=== PATIENT | male | born 1985 | race African-American/Black ===

== ENCOUNTER 2018-05-03 12:01 | Inpatient (IN) | payer OTHER ==
[2018-05-03 17:32] VITALS: BMI 27.7
--- NOTE | 2018-05-03 18:58 | HP ---
"COWS - Scale Resting Pulse: 0= [place] 80 or Below Sweatin=Flushed/Facial Moisture Restless Observation: 3= Extraneous Movement Pupil Size: 0= Normal to Room Light Bone or Joint Aches: 2= Severe Diffuse Aches (Increase in pre-existing bone pain ) Runny Nose/ Eye Tearin= Runny Nose/Eyes GI Upset > 30mins: 0= None Tremor Observation: 2= Slight Tremor Visible Yawning Observation: 0= None Anxiety or Irritability: 1=Feels Anxious/Irritable Goose Flesh Skin: 0=Smooth Skin COWS Score: 12 CIWA Score - CIWA Score Nausea/Vomitin-Mild Nausea/No Vomiting Muscle Tremors: 4-Moderate,w/Arms Extend Anxiety: 1-Mildly Anxious Agitation: 4-Moderately Restless Paroxysmal Sweats: 4-Forehead w/Sweat Beads Orientation: 0-Oriented Tacttile Disturbances: 0-None Auditory Disturbances: 0-None Visual Disturbances: 0-None Headache: 0-None Present CIWA-Ar Total Score: 14 Admission ROS S - HPI Chief Complaint: Here for detox from alcohol and heroin. I'm having withdrawal. Allergies/Adverse Reactions: Allergies Allergy/AdvReac Type Severity Reaction Status Date / Time Penicillins Allergy Severe Verified 05/03/18 17:46 History of Present Illness: Alcohol use began at age 10. Marijuana use began at age 13. Heroin use began at age 32. Denies IVDU. States seizures only as a child. Denies blackouts. Hx DM. Last took insulin 3 days ago and metformin 2 days ago. Denies hx high blood pressure. Longest period of sobriety 6 months while on Suboxone. Not currently on Suboxone or methaone. Search Terms: Casey Meehan, 1985 Search Date: 05/03/2018 06:42:51 PM The Drug Utilization Report below displays all of the controlled substance prescriptions, if any, that your patient has filled in the last twelve months. The information displayed on this report is compiled from pharmacy submissions to the Department, and accurately reflects the information as submitted by the pharmacies. This report was requested by: Nilda Hassan | Reference #: [id number] Others' Prescriptions Patient Name: Casey Meehan Date: 1985 Address: [address] [place] [address] Sex: Male Rx Written Rx Dispensed Drug Quantity Days Supply Prescriber Name 01/16/2018 01/17/2018 suboxone 8 mg-2 mg sl film 45 23 Jluis Harp 12/19/2017 12/19/2017 suboxone 8 mg-2 mg sl film 45 23 Desmond Reina MD 09/24/2017 09/25/2017 suboxone 8 mg-2 mg sl film 45 23 Jluis Harp 08/17/2017 08/17/2017 suboxone 8 mg-2 mg sl film 45 25 Jluis Harp 07/31/2017 07/31/2017 suboxone 8 mg-2 mg sl film 30 15 Jluis Harp 07/17/2017 07/17/2017 suboxone 8 mg-2 mg sl film 30 30 Edmond Garcia MD 07/10/2017 07/10/2017 suboxone 8 mg-2 mg sl film 7 7 Jluis Harp Exam Limitations: No Limitations - Ebola screening Have you traveled outside of the country in the last 21 days: No Have you had contact with anyone from an Ebola affected area: No Have you been sick,other than usual withdrawal symptoms: No Do you have a fever: No - Review of Systems Constitutional: Diaphoresis, Changes in sleep (Difficulty falling asleep x 15 years) EENT: reports: Blurred Vision (Needs gl), Dental Problems (Missing teeth. Chews and swallow ok.) Respiratory: reports: No Symptoms reported Cardiac: reports: No Symptoms Reported GI: reports: Diarrhea (greenish x i day r/t withdrawal), Nausea, Indigestion ( Recent episodes of heart burn) : reports: No Symptoms Reported Musculoskeletal: reports: Back Pain (Tightness and sharp pain that radiates to ( L) groin x 4 monhts), Other (Bone pain in lower legs and elbows x 4 months.) Integumentary: reports: No Symptoms Reported Neuro: reports: Seizure (as a child.), Tremors Endocrine: reports: Increased Thirst, Increased Urine Hematology: reports: No Symptoms Reported Psychiatric: reports: Judgement Intact, Orientated x3, Agitated, Anxious, Depressed (Hx. PTSD.Denies trhoughts of harming selfor others) Patient History - Patient Medical History Hx Asthma: No Hx Chronic Obstructive Pulmonary Disease (COPD): No Hx Cardiac Disorders: No Hx Hypertension: No Hx Seizures: Yes (chiildhood seizures last 20 yrs ago.) Hx Diabetes: Yes (Type II) Hx Gastrointestinal Disorders: Yes (acid reflux.) Hx Genitourinary Disorders: No Hx Sexually Transmitted Disorders: No Hx Renal Disease (ESRD): No Hx Depression: No Hx Suicide Attempt: No Hx Schizophrenia: No - Patient Surgical History Past Surgical History: Yes Hx Orthopedic Surgery: Yes (R shoulder ligament repair 03/06) Anesthesia Reaction: No - PPD History Previous Implant?: Yes Documented Results: Positive w/o proof (X-ray 60 days ago at X-ray facility on [address] Implanted On Prior [facility] Admission?: No PPD to be Administered?: No - Smoking Cessation Smoking history: Current every day smoker Have you smoked in the past 12 months: Yes Aproximately how many cigarettes per day: 10 Hx Chewing Tobacco Use: No Initiated information on smoking cessation: Yes 'Breaking Loose' booklet given: 05/03/18 - Substance & Tx. History Hx Alcohol Use: Yes Hx Substance Use: Yes Substance Use Type: Alcohol, Heroin, Marijuana Hx Substance Use Treatment: Yes (states past subxone treatment only) - Substances Abused Heroin Route: Inhalation Frequency: Daily Amount used: 6 bags Age of first use: 32 Date of Last Use: 05/02/18 Alcohol Route: Oral Frequency: Daily Amount used: 1 pint and up Age of first use: 10 Date of Last Use: 05/03/18 Marijuana/Hashish Route: Smoking Frequency: Daily Amount used: 1/2 ounce Age of first use: 13 Date of Last Use: 05/03/18 Admission Physical Exam S - Vital Signs Vital Signs: Vital Signs - 24 hr 05/03/18 17:30 Temperature 97.4 F L Pulse Rate 70 Respiratory 21 Rate Blood Pressure 148/90 - Physical General Appearance: Yes: Nourished, Appropriately Dressed, Mild Distress, Tremorous, Sweating, Anxious HEENTM: Yes: EOMI, Hearing grossly Normal, Normal Voice, PANCHITO (4 mm), Pharynx Normal, Rhinorrhea Respiratory: Yes: Chest Non-Tender, Lungs Clear, No Respiratory Distress Neck: Yes: No masses,lesions,Nodules, Supple Breast: Yes: Breast Exam Deferred Cardiology: Yes: Regular Rhythm, Regular Rate, S1, S2 Abdominal: Yes: Non Tender, Flat, Soft, Increased Bowel Sounds Genitourinary: Yes: Within Normal Limits Back: Yes: Normal Inspection Musculoskeletal: Yes: Gait Steady, Joint Stiffness (Decreased lift (R) shoulder. Decreased (R) hand grasp compared to (L). Radial pusles (+).) Extremities: Yes: Normal Capillary Refill, Normal Inspection, Tremors Neurological: Yes: teenage program director II-XII NML intact, Fully Oriented, Alert, Motor Strength 5/5 Integumentary: Yes: Normal Color, Dry, Warm Lymphatic: Yes: Within Normal Limits - Diagnostic (1) Alcohol dependence with uncomplicated withdrawal Current Visit: Yes Status: Acute (2) Opioid dependence with withdrawal Current Visit: Yes Status: Acute (3) Cannabis dependence, uncomplicated Current Visit: Yes Status: Acute (4) Nicotine dependence with withdrawal Current Visit: Yes Status: Acute Qualifiers: Nicotine product type: cigarettes Qualified Code(s): F17.213 - Nicotine dependence, cigarettes, with withdrawal (5) Diabetes Current Visit: Yes Status: Chronic Qualifiers: Diabetes mellitus type: type 2 Diabetes mellitus exterminator termite insulin use: with halfway use Diabetes mellitus complication status: with unspecified complications Qualified Code(s): E11.8 - Type 2 diabetes mellitus with unspecified complications; Z79.4 - lobsterman (current) use of insulin Cleared for Admission [facility] - Detox or Rehab Detox Regimen/Protocol: Methadone/Librium [facility] Breath Alcohol Content Breath Alcohol Content: 0 Urine Drug Screen - Results Drug Screen Negative: No Urine Drug Screen Results: THC-Marijuana, OPI-Opiates"
[2018-05-03] MEDS ORDERED: guaiFENesin/D-METHORPHAN HB 10 ML UNIT-DOSE CUPS PO PRN (19:31)
[2018-05-03] MEDS ORDERED: hydrOXYzine PAMOATE 50 MG CAPSULE (FP) PO PRN (19:31)
[2018-05-03] MEDS ORDERED: NICOTINE POLACRILEX 2 MG GUM BC PRN (19:31)
[2018-05-03] MEDS ORDERED: LOPERAMIDE HCL 2 MG CAPSULE PO PRN (19:31)
[2018-05-03] MEDS ORDERED: METHADONE HCL 10 MG TABLET (FOR DETOX USE ONLY) PO ONE ×2 (19:31→23:00)
[2018-05-03] MEDS ORDERED: chlordiazePOXIDE HCL 25 MG CAPSULE PO PRN (19:31)
[2018-05-03] MEDS ORDERED: ACETAMINOPHEN 325 MG TABLET (FP) PO PRN (19:31)
[2018-05-03] MEDS ORDERED: MAGNESIUM CITRATE 300 ML BOTTLE PO PRN (19:31)
[2018-05-03] MEDS ORDERED: IBUPROFEN 400 MG TABLET (FP) PO PRN (19:31)
[2018-05-03] MEDS ORDERED: MAG HYDROX/AL HYDROX/SIMETH 30 ML UNIT-DOSE CUP PO PRN (19:31)
[2018-05-03] MEDS ORDERED: MAGNESIUM HYDROX 2400MG/30ML ORAL SUSPENSION 30 ML CUP PO PRN (19:31)
[2018-05-03] MEDS ORDERED: chlordiazePOXIDE HCL 25 MG CAPSULE PO ONE (19:31)
[2018-05-03] MEDS ORDERED: P-EPHED 60MG/TRIPROLIDI 2.5MG TABLET PO PRN (19:31)
[2018-05-03] MEDS ORDERED: MENTHOL/PHENOL 1 EACH UD MM PRN (19:31)
[2018-05-03] MEDS: INSULIN SLIDING SCALE (NOVOLOG) 1 VIAL SQ SCH (21:09)
[2018-05-03] MEDS: THIAMINE HCL 100 MG TABLET (FP) PO SCH (22:07)
[2018-05-03] MEDS: chlordiazePOXIDE HCL 25 MG CAPSULE PO SCH (22:07)
[2018-05-03] MEDS: INSULIN (LEVEMIR) 100 UNITS/ML UNITS SQ SCH (22:10)
[2018-05-04] MEDS: chlordiazePOXIDE HCL 25 MG CAPSULE PO SCH ×4 (05:24→22:47)
[2018-05-04] MEDS: metFORMIN HCL 500 MG TABLET (FP) PO SCH ×2 (07:31→17:29)
[2018-05-04] MEDS: INSULIN SLIDING SCALE (NOVOLOG) 1 VIAL SQ SCH ×4 (07:31→21:45)
[2018-05-04] MEDS ORDERED: METHADONE HCL 10 MG TABLET (FOR DETOX USE ONLY) PO SCH (10:00)
[2018-05-04] MEDS: PRENATAL VITAMINS W/ FOLIC ACID TABLET (FP) PO SCH (10:49)
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
[2018-05-04] MEDS: NICOTINE 21 MG/24 HOURS TOPICAL PATCH TD SCH (10:50)
[2018-05-04 10:59] LABS: HEMOGLOBIN 13.3 GM/dL (11.7-16.9)
[2018-05-04 11:02] LABS: HEMATOCRIT 40.3 % (35.4-49); MCH 30.7 pg (25.7-33.7); MCHC 32.9 g/dl (32.0-35.9); MEAN CELL VOLUME 93.2 fl (80-96); MEAN PLT VOLUME 9.3 fl (7.5-11.1); PLATELET COUNT 231 K/MM3 (134-434); RBC 4.33 M/mm3 (4.00-5.60); RDW 12.2 % (11.9-15.9); WHITE BLOOD COUNT 8.7 K/mm3 (4.0-10.0)
[2018-05-04 11:34] LABS: ALBUMIN 3.2 g/dl (3.4-5.0); ANION GAP 10 MMOL/L (8-16); BILIRUBIN,TOTAL 0.4 mg/dL (0.2-1.0); BLOOD UREA NITROGEN 16 mg/dL (7-18); CALCIUM 8.5 mg/dL (8.5-10.1); CHLORIDE 105 mmol/L (98-107); CO2 27 mmol/L (21-32); CREATININE 0.9 mg/dL (0.55-1.3); GLUCOSE,RANDOM 247 mg/dL (74-106); POTASSIUM 4.1 mmol/L (3.5-5.1); SGOT/AST 11 U/L (15-37); SGPT/ALT 16 U/L (13-61); SODIUM 142 mmol/L (136-145); TOT PROT 6.2 g/dl (6.4-8.2)
[2018-05-04 11:35] LABS: ALK PHOS 108 U/L (45-117)
--- NOTE | 2018-05-04 14:06 | PN ---
[facility] Progress Note (SOAP) Subjective: patient reports fatigue , otherwise denies n.v.d. Objective: 05/04/18 14:05 CBC, BMP 05/04/18 07:50 05/04/18 07:50 Vital Signs Temperature 98.7 F 05/04/18 11:04 Pulse Rate 76 05/04/18 11:04 Respiratory Rate 18 05/04/18 11:04 Blood Pressure 134/87 05/04/18 11:04 O2 Sat by Pulse Oximetry (%) wnwd , aaox 3 , nad Assessment: 05/04/18 14:05 alcohol and opioid dependence dm- sliding scale in place Plan: continue taper
[2018-05-04] MEDS ORDERED: INSULIN (NOVOLOG) ASPART 100 UNITS/ML 10ML VIAL ONE (21:43)
[2018-05-04] MEDS: INSULIN (LEVEMIR) 100 UNITS/ML UNITS SQ SCH (21:46)
[2018-05-04] MEDS: THIAMINE HCL 100 MG TABLET (FP) PO SCH (22:47)
[2018-05-05] MEDS: chlordiazePOXIDE HCL 25 MG CAPSULE PO SCH ×3 (05:23→17:01)
[2018-05-05] MEDS: metFORMIN HCL 500 MG TABLET (FP) PO SCH ×2 (06:26→17:01)
[2018-05-05] MEDS: INSULIN SLIDING SCALE (NOVOLOG) 1 VIAL SQ SCH ×4 (06:27→22:32)
[2018-05-05] MEDS: NICOTINE 21 MG/24 HOURS TOPICAL PATCH TD SCH (10:47)
[2018-05-05] MEDS: PRENATAL VITAMINS W/ FOLIC ACID TABLET (FP) PO SCH (10:47)
[2018-05-05] MEDS: METHADONE HCL 5 MG TABLET (FOR DETOX USE ONLY) PO SCH (10:47)
[2018-05-05] MEDS ORDERED: INSULIN (NOVOLOG) ASPART 100 UNITS/ML 10ML VIAL ONE ×3 (11:56→22:51)
--- NOTE | 2018-05-05 15:03 | PN ---
[facility] CIWA - CIWA Score Nausea/Vomitin-Mild Nausea/No Vomiting Muscle Tremors: 3 Anxiety: 3 Agitation: 2 Paroxysmal Sweats: 3 Orientation: 0-Oriented Tacttile Disturbances: 1-Very Mild Itch/Numbness Auditory Disturbances: 0-None Visual Disturbances: 0-None Headache: 1-Very Mild CIWA-Ar Total Score: 14 [facility] COWS - Scale Resting Pulse: 0= [place] 80 or Below Sweatin= Chills/Flushing Restless Observation: 3= Extraneous Movement Pupil Size: 1= Pupils >than Normal Bone or Joint Aches: 2= Severe Diffuse Aches Runny Nose/ Eye Tearin= Runny Nose/Eyes GI Upset > 30mins: 2= Nausea/Diarrhea Tremor Observation of Outstretched Hands: 2= Slight Tremor Visible Yawning Observation: 1= 1-2x During Session Anxiety or Irritability: 2=Irritable/Anxious Goose Flesh Skin: 0=Smooth Skin COWS Score: 16 [facility] Progress Note (SOAP) Subjective: Denies any complaints Objective: 05/05/18 15:02 Last Vital Signs Temp Pulse Resp BP Pulse Ox 98.4 F 74 18 119/76 05/05/18 13:53 05/05/18 13:53 05/05/18 13:53 05/05/18 13:53 Laboratory Tests 05/03/18 05/03/18 05/04/18 17:58 20:42 05:23 WBC RBC Hgb Hct MCV MCH MCHC RDW Plt Count MPV Sodium Potassium Chloride Carbon Dioxide Anion Gap BUN Creatinine Creat Clearance w eGFR POC Glucometer 395 304 259 Random Glucose Calcium Total Bilirubin AST ALT Alkaline Phosphatase Total Protein Albumin RPR Titer 05/04/18 05/04/18 05/04/18 07:50 07:50 07:50 WBC 8.7 RBC 4.33 Hgb 13.3 Hct 40.3 MCV 93.2 MCH 30.7 MCHC 32.9 RDW 12.2 Plt Count 231 MPV 9.3 Sodium 142 Potassium 4.1 Chloride 105 Carbon Dioxide 27 Anion Gap 10 BUN 16 Creatinine 0.9 Creat Clearance w eGFR > 60 POC Glucometer Random Glucose 247 H Calcium 8.5 Total Bilirubin 0.4 AST 11 L ALT 16 Alkaline Phosphatase 108 Total Protein 6.2 L Albumin 3.2 L RPR Titer Nonreactive 0905/04/18 05/04/18 11:57 16:56 21:06 WBC RBC Hgb Hct MCV MCH MCHC RDW Plt Count MPV Sodium Potassium Chloride Carbon Dioxide Anion Gap BUN Creatinine Creat Clearance w eGFR POC Glucometer 438 576 321 Random Glucose Calcium Total Bilirubin AST ALT Alkaline Phosphatase Total Protein Albumin RPR Titer 05/05/18 05/05/18 05:19 11:52 WBC RBC Hgb Hct MCV MCH MCHC RDW Plt Count MPV Sodium Potassium Chloride Carbon Dioxide Anion Gap BUN Creatinine Creat Clearance w eGFR POC Glucometer 302 390 Random Glucose Calcium Total Bilirubin AST ALT Alkaline Phosphatase Total Protein Albumin RPR Titer Labs reviewed Assessment: 05/05/18 15:02 Withdrawal symptoms Plan: Continue detox
[2018-05-05 18:19] LABS: URINE APPEARANCE CLEAR; URINE BILIRUBIN NEGATIVE (<2.0 mg/dL); URINE COLOR LTYELLOW; URINE GLUCOSE (UA) 3+ (NEGATIVE); URINE KETONE NEGATIVE (NEGATIVE); URINE LEUK ESTERASE NEGATIVE (NEGATIVE); URINE NITRITE NEGATIVE (NEGATIVE); URINE PROTEIN NEGATIVE (NEGATIVE); URINE UROBILINOGEN NEGATIVE mg/dL (0.2-1.0)
[2018-05-05] MEDS: THIAMINE HCL 100 MG TABLET (FP) PO SCH (22:31)
[2018-05-05] MEDS: INSULIN (LEVEMIR) 100 UNITS/ML UNITS SQ SCH (22:31)
[2018-05-05] MEDS: chlordiazePOXIDE 5 MG CAPSULE PO SCH (22:32)
[2018-05-05] MEDS: ZOLPIDEM TARTRATE 5 MG TABLET PO PRN (22:32)
--- NOTE | 2018-05-05 22:34 | EKG ---
Test Reason : Blood Pressure : / mmHG Vent. Rate : 073 BPM Atrial Rate : 073 BPM P-R Int : 182 ms QRS Dur : 094 ms QT Int : 368 ms P-R-T Axes : 052 033 026 degrees QTc Int : 405 ms NORMAL SINUS RHYTHM NORMAL ECG NO PREVIOUS ECGS AVAILABLE Confirmed by MELITA FARRIS MD ([id number]) on 05/05/2018 10:33:41 PM Referred By: Confirmed By:MELITA FARRIS MD
[2018-05-06] MEDS: chlordiazePOXIDE 5 MG CAPSULE PO SCH ×3 (05:50→16:47)
[2018-05-06] MEDS ORDERED: INSULIN (NOVOLOG) ASPART 100 UNITS/ML 10ML VIAL ONE ×2 (05:50→16:40)
[2018-05-06] MEDS: metFORMIN HCL 500 MG TABLET (FP) PO SCH ×2 (07:13→16:47)
[2018-05-06] MEDS: INSULIN SLIDING SCALE (NOVOLOG) 1 VIAL SQ SCH ×4 (07:13→21:03)
[2018-05-06] MEDS: METHADONE HCL 5 MG TABLET (FOR DETOX USE ONLY) PO SCH (10:50)
[2018-05-06] MEDS: NICOTINE 21 MG/24 HOURS TOPICAL PATCH TD SCH (10:50)
[2018-05-06] MEDS: PRENATAL VITAMINS W/ FOLIC ACID TABLET (FP) PO SCH (10:50)
--- NOTE | 2018-05-06 17:22 | PN ---
[facility] Progress Note Note: Vital Signs Temperature 97.1 F L 05/06/18 13:26 Pulse Rate 82 05/06/18 13:26 Respiratory Rate 18 05/06/18 13:26 Blood Pressure 141/92 05/06/18 13:26 O2 Sat by Pulse Oximetry (%) Patient reports taking higher dose of levemir 20 units at home. Currently receiving 10 units qhs. Pharmacy on file [facility] to verify patients medication, reports none of the medications metformin or levemir were dispense from there. Levemir HS dose increased to 12 units starting today. Increase PO fluids continue to monitor
--- NOTE | 2018-05-06 18:20 | PN ---
[facility] Progress Note (SOAP) Subjective: shakes slepp disturbance Objective: 05/06/18 18:19 A & O x 3 Anxious Assessment: 05/06/18 18:20 withdrawal sx Plan: continue detox continue BGM
[2018-05-06] MEDS: THIAMINE HCL 100 MG TABLET (FP) PO SCH (21:44)
[2018-05-06] MEDS: ZOLPIDEM TARTRATE 5 MG TABLET PO PRN (21:44)
[2018-05-06] MEDS: INSULIN (LEVEMIR) 100 UNITS/ML UNITS SQ SCH (21:45)
[2018-05-06] MEDS: chlordiazePOXIDE HCL 10 MG CAPSULE PO SCH (22:16)
[2018-05-07] MEDS: MELATONIN 5 MG TABLETS PO PRN (01:49)
[2018-05-07] MEDS: chlordiazePOXIDE HCL 10 MG CAPSULE PO SCH ×3 (05:41→17:15)
[2018-05-07] MEDS ORDERED: INSULIN (NOVOLOG) ASPART 100 UNITS/ML 10ML VIAL ONE ×2 (07:35→16:44)
[2018-05-07] MEDS: metFORMIN HCL 500 MG TABLET (FP) PO SCH ×2 (07:37→17:15)
[2018-05-07] MEDS: INSULIN SLIDING SCALE (NOVOLOG) 1 VIAL SQ SCH ×4 (07:37→22:19)
[2018-05-07] MEDS ORDERED: METHADONE HCL 10 MG TABLET (FOR DETOX USE ONLY) PO SCH (10:00)
[2018-05-07] MEDS: PRENATAL VITAMINS W/ FOLIC ACID TABLET (FP) PO SCH (10:53)
[2018-05-07] MEDS: NICOTINE 21 MG/24 HOURS TOPICAL PATCH TD SCH (10:54)
--- NOTE | 2018-05-07 11:23 | PN ---
[facility] Progress Note Note: PATIENT TOLERATING DETOX WELL. C/O INSOMNIA BUT OTHERWISE DENIES MEDICAL COMPLAINTS. Vital Signs Temperature 97.6 F 05/07/18 09:30 Pulse Rate 83 05/07/18 09:30 Respiratory Rate 18 05/07/18 09:30 Blood Pressure 116/73 05/07/18 09:30 O2 Sat by Pulse Oximetry (%) Laboratory Tests 05/03/18 05/03/18 05/04/18 17:58 20:42 05:23 WBC RBC Hgb Hct MCV MCH MCHC RDW Plt Count MPV Sodium Potassium Chloride Carbon Dioxide Anion Gap BUN Creatinine Creat Clearance w eGFR POC Glucometer 395 304 259 Random Glucose Calcium Total Bilirubin AST ALT Alkaline Phosphatase Total Protein Albumin Urine Color Urine Appearance Urine pH Ur Specific [place] Urine Protein Urine Glucose (UA) Urine Ketones Urine Blood Urine Nitrite Urine Bilirubin Urine Urobilinogen Ur Leukocyte Esterase RPR Titer 05/04/18 05/04/18 05/04/18 07:50 07:50 07:50 WBC 8.7 RBC 4.33 Hgb 13.3 Hct 40.3 MCV 93.2 MCH 30.7 MCHC 32.9 RDW 12.2 Plt Count 231 MPV 9.3 Sodium 142 Potassium 4.1 Chloride 105 Carbon Dioxide 27 Anion Gap 10 BUN 16 Creatinine 0.9 Creat Clearance w eGFR > 60 POC Glucometer Random Glucose 247 H Calcium 8.5 Total Bilirubin 0.4 AST 11 L ALT 16 Alkaline Phosphatase 108 Total Protein 6.2 L Albumin 3.2 L Urine Color Urine Appearance Urine pH Ur Specific [place] Urine Protein Urine Glucose (UA) Urine Ketones Urine Blood Urine Nitrite Urine Bilirubin Urine Urobilinogen Ur Leukocyte Esterase RPR Titer Nonreactive 05/04/18 05/04/18 05/04/18 11:57 16:56 21:06 WBC RBC Hgb Hct MCV MCH MCHC RDW Plt Count MPV Sodium Potassium Chloride Carbon Dioxide Anion Gap BUN Creatinine Creat Clearance w eGFR POC Glucometer 438 576 321 Random Glucose Calcium Total Bilirubin AST ALT Alkaline Phosphatase Total Protein Albumin Urine Color Urine Appearance Urine pH Ur Specific [place] Urine Protein Urine Glucose (UA) Urine Ketones Urine Blood Urine Nitrite Urine Bilirubin Urine Urobilinogen Ur Leukocyte Esterase RPR Titer 05/05/18 05/05/18 05/05/18 05:19 11:52 16:19 WBC RBC Hgb Hct MCV MCH MCHC RDW Plt Count MPV Sodium Potassium Chloride Carbon Dioxide Anion Gap BUN Creatinine Creat Clearance w eGFR POC Glucometer 302 390 315 Random Glucose Calcium Total Bilirubin AST ALT Alkaline Phosphatase Total Protein Albumin Urine Color Urine Appearance Urine pH Ur Specific [place] Urine Protein Urine Glucose (UA) Urine Ketones Urine Blood Urine Nitrite Urine Bilirubin Urine Urobilinogen Ur Leukocyte Esterase RPR Titer 05/05/18 05/05/18 05/06/18 17:34 21:31 05:48 WBC RBC Hgb Hct MCV MCH MCHC RDW Plt Count MPV Sodium Potassium Chloride Carbon Dioxide Anion Gap BUN Creatinine Creat Clearance w eGFR POC Glucometer 319 365 Random Glucose Calcium Total Bilirubin AST ALT Alkaline Phosphatase Total Protein Albumin Urine Color Ltyellow Urine Appearance Clear Urine pH 5.0 Ur Specific [place] 1.030 Urine Protein Negative Urine Glucose (UA) 3+ H Urine Ketones Negative Urine Blood Negative Urine Nitrite Negative Urine Bilirubin Negative Urine Urobilinogen Negative Ur Leukocyte Esterase Negative RPR Titer 05/06/18 05/06/18 05/07/18 16:16 20:10 05:40 WBC RBC Hgb Hct MCV MCH MCHC RDW Plt Count MPV Sodium Potassium Chloride Carbon Dioxide Anion Gap BUN Creatinine Creat Clearance w eGFR POC Glucometer 460 212 300 Random Glucose Calcium Total Bilirubin AST ALT Alkaline Phosphatase Total Protein Albumin Urine Color Urine Appearance Urine pH Ur Specific [place] Urine Protein Urine Glucose (UA) Urine Ketones Urine Blood Urine Nitrite Urine Bilirubin Urine Urobilinogen Ur Leukocyte Esterase RPR Titer SKIN WARM AND DRY CAR S1S2 RESP CTA BL NEURO ALERT AND ORIENTED X 3 A/P; INSOMNIA WITHDRAWAL SYNDROME CONTINUE DETOX PER PROTOCOL
[2018-05-07] MEDS: THIAMINE HCL 100 MG TABLET (FP) PO SCH (22:16)
[2018-05-07] MEDS: ZOLPIDEM TARTRATE 5 MG TABLET PO PRN (22:16)
[2018-05-07] MEDS: INSULIN (LEVEMIR) 100 UNITS/ML UNITS SQ SCH (22:19)
[2018-05-08] MEDS: MELATONIN 5 MG TABLETS PO PRN (00:20)
[2018-05-08] MEDS ORDERED: METHADONE HCL 5 MG TABLET (FOR DETOX USE ONLY) PO SCH (06:00)
[2018-05-08] MEDS: INSULIN SLIDING SCALE (NOVOLOG) 1 VIAL SQ SCH (06:10)
[2018-05-08] MEDS: metFORMIN HCL 500 MG TABLET (FP) PO SCH (06:48)
[2018-05-08 06:49] VITALS: BP 139/94; PULSE 74; TEMP 97.8
--- NOTE | 2018-05-08 09:37 | DS ---
[facility] Detox Discharge Summary Admission Date: 05/03/18 Discharge Date: 05/08/18 - History Present History: Alcohol Dependence, Opioid Dependence - Physical Exam Results Vital Signs: Vital Signs Temperature 97.8 F 05/08/18 06:48 Pulse Rate 74 05/08/18 06:48 Respiratory Rate 18 05/08/18 06:48 Blood Pressure 139/94 05/08/18 06:48 O2 Sat by Pulse Oximetry (%) - Treatment Hospital Course: Detox Protocol Followed, Detoxed Safely, Responded well, Discharged Condition Good - Medication Discharge Medications: Ambulatory Orders Insulin Glargine,Hum.rec.anlog [Lantus Solostar PEN -] 10 units SQ HS #1 ins Metformin HCl [Glucophage] 1,000 mg PO BID #60 tablet 05/08/18 - Diagnosis (1) Withdrawal syndrome Status: Resolved Qualifiers: Substance type: opioid Qualified Code(s): F11.23 - Opioid dependence with withdrawal - AMA Did Patient Leave Against Medical Advice: No
== END 2018-05-08 08:45 | disposition home or self-care (01) | DRG 773 ==
LOC: YASAS 12:01 → Y3N 18:56
PROC: HZ2ZZZZ Detoxification Services for Substance Abuse Treatment (ICD-10-PCS; principal; 2018-05-03)
DX: F11.23 Opioid dependence with withdrawal (principal); F10.230 Alcohol dependence with withdrawal, uncomplicated; F12.20 Cannabis dependence, uncomplicated; F17.213 Nicotine dependence, cigarettes, with withdrawal; F43.10 Post-traumatic stress disorder, unspecified; E11.65 Type 2 diabetes mellitus with hyperglycemia; Z79.4 Long term (current) use of insulin; K21.9 Gastro-esophageal reflux disease without esophagitis; Z86.69 Personal history of other diseases of the nervous system and sense organs
CPT/HCPCS: 36415; 80053; 81003; 82962; 85027; 86593; 93005; 93010

== ENCOUNTER 2021-10-03 12:15 | Inpatient (IN) | payer OTHER ==
[2021-10-03] MEDS ORDERED: MAG HYDROX/AL HYDROX/SIMETH 30 ML UNIT-DOSE CUP PO PRN (12:51)
[2021-10-03] MEDS ORDERED: MENTHOL/PHENOL 1 EACH UD MM PRN (12:51)
[2021-10-03] MEDS ORDERED: ACETAMINOPHEN 325 MG TABLET (FP) PO PRN ×2 (12:51)
[2021-10-03] MEDS ORDERED: methaDONE HCL 10 MG TABLET (FOR DETOX USE ONLY) PO ONE (12:51)
[2021-10-03] MEDS ORDERED: MAGNESIUM CITRATE 300 ML BOTTLE PO PRN (12:51)
[2021-10-03] MEDS ORDERED: METHOCARBAMOL 500 MG TABLET PO PRN (12:51)
[2021-10-03] MEDS ORDERED: IBUPROFEN 400 MG TABLET (FP) PO PRN (12:51)
[2021-10-03] MEDS ORDERED: LOPERAMIDE HCL 2 MG CAPSULE PO PRN (12:51)
[2021-10-03] MEDS ORDERED: NICOTINE 10 MG CARTRIDGE (INHALER) IH PRN (12:51)
[2021-10-03] MEDS ORDERED: MAGNESIUM HYDROX 2400MG/30ML ORAL SUSPENSION 30 ML CUP PO PRN (12:51)
[2021-10-03] MEDS ORDERED: BISMUTH SUBSALICYLATE 262 MG/15 ML BTL PO PRN (12:51)
[2021-10-03 13:57] VITALS: BMI 26.1
[2021-10-03] MEDS: ONDANSETRON *ODT* 4 MG TABLET SL PRN (14:46)
[2021-10-03] MEDS ORDERED: hydrOXYzine PAMOATE 25 MG CAPSULE (FP) PO ONE (14:59)
[2021-10-03] MEDS ORDERED: cloNIDine HCL 0.1 MG TABLET ONE (14:59)
[2021-10-03] MEDS ORDERED: methaDONE HCL 10 MG TABLET (FOR DETOX USE ONLY) ONE (14:59)
[2021-10-03] MEDS: hydrOXYzine PAMOATE 25 MG CAPSULE (FP) PO SCH ×3 (15:13→22:53)
[2021-10-03] MEDS: cloNIDine HCL 0.1 MG TABLET PO PRN (15:13)
[2021-10-03] MEDS: PRENATAL VITAMINS W/ FOLIC ACID TABLET (FP) PO SCH (15:13)
[2021-10-03] MEDS ORDERED: chlordiazePOXIDE HCL 25 MG CAPSULE PO PRN (15:45)
[2021-10-03 16:14] LABS: HEMATOCRIT 36.3 % (35.4-49); HEMOGLOBIN 12.2 GM/dL (11.7-16.9); MCH 31.4 pg (25.7-33.7); MCHC 33.5 g/dl (32.0-35.9); MEAN CELL VOLUME 93.9 fl (80-96); MEAN PLT VOLUME 8.2 fl (7.5-11.1); PLATELET COUNT 326 10^3/uL (134-434); RBC 3.87 M/mm3 (4.00-5.60); RDW 12.7 % (11.9-15.9); WHITE BLOOD COUNT 8.9 K/mm3 (4.0-10.0)
[2021-10-03 16:28] LABS: CALCIUM 9.3 mg/dL (8.5-10.1)
[2021-10-03 16:29] LABS: ALBUMIN 2.8 g/dl (3.4-5.0); BLOOD UREA NITROGEN 15.6 mg/dL (7-18)
[2021-10-03 16:32] LABS: CREATININE 1.1 mg/dL (0.55-1.3)
[2021-10-03 16:33] LABS: BILIRUBIN,TOTAL 0.4 mg/dL (0.2-1)
[2021-10-03 16:34] LABS: TOT PROT 6.3 g/dl (6.4-8.2)
[2021-10-03] MEDS: NICOTINE 21 MG/24 HOURS TOPICAL PATCH TD SCH (17:29)
[2021-10-03] MEDS: chlordiazePOXIDE HCL 25 MG CAPSULE PO SCH ×2 (17:30→22:53)
[2021-10-03] MEDS: INSULIN SLIDING SCALE (NOVOLOG) 1 VIAL SQ SCH ×2 (17:35→22:54)
[2021-10-03] MEDS: THIAMINE HCL 100 MG TABLET (FP) PO SCH (22:53)
[2021-10-03] MEDS: MELATONIN 5 MG TABLETS PO SCH (22:53)
[2021-10-04] MEDS: hydrOXYzine PAMOATE 25 MG CAPSULE (FP) PO SCH ×5 (06:12→23:36)
[2021-10-04] MEDS: chlordiazePOXIDE HCL 25 MG CAPSULE PO SCH ×4 (06:12→23:37)
[2021-10-04] MEDS: cloNIDine HCL 0.1 MG TABLET PO PRN ×3 (06:37→23:36)
[2021-10-04] MEDS: INSULIN SLIDING SCALE (NOVOLOG) 1 VIAL SQ SCH ×4 (07:38→23:32)
[2021-10-04] MEDS ORDERED: methaDONE HCL 10 MG TABLET (FOR DETOX USE ONLY) ONE (09:38)
[2021-10-04] MEDS: PRENATAL VITAMINS W/ FOLIC ACID TABLET (FP) PO SCH (11:03)
[2021-10-04] MEDS: NICOTINE 21 MG/24 HOURS TOPICAL PATCH TD SCH (11:09)
[2021-10-04] MEDS ORDERED: INSULIN SLIDING SCALE (NOVOLOG) 1 VIAL SQ ONE (12:28)
[2021-10-04] MEDS: metFORMIN HCL 500 MG TABLET (FP) PO SCH (18:41)
[2021-10-04] MEDS: INSULIN (LEVEMIR) 100 UNITS/ML UNITS SQ SCH (23:35)
[2021-10-04] MEDS: THIAMINE HCL 100 MG TABLET (FP) PO SCH (23:36)
[2021-10-04] MEDS: MELATONIN 5 MG TABLETS PO SCH (23:36)
[2021-10-05 06:06] LABS: SARS-CoV-2 NAA Not Detected (Not Detected)
[2021-10-05] MEDS: hydrOXYzine PAMOATE 25 MG CAPSULE (FP) PO SCH ×5 (06:07→22:36)
[2021-10-05] MEDS: metFORMIN HCL 500 MG TABLET (FP) PO SCH ×2 (06:07→17:57)
[2021-10-05] MEDS: cloNIDine HCL 0.1 MG TABLET PO PRN (06:08)
[2021-10-05] MEDS: chlordiazePOXIDE HCL 25 MG CAPSULE PO SCH ×4 (06:09→22:36)
[2021-10-05] MEDS: INSULIN SLIDING SCALE (NOVOLOG) 1 VIAL SQ SCH ×4 (07:55→22:37)
[2021-10-05] MEDS ORDERED: methaDONE HCL 10 MG TABLET (FOR DETOX USE ONLY) PO ONE (10:00)
[2021-10-05] MEDS: NICOTINE 21 MG/24 HOURS TOPICAL PATCH TD SCH (10:34)
[2021-10-05] MEDS: PRENATAL VITAMINS W/ FOLIC ACID TABLET (FP) PO SCH (10:34)
[2021-10-05] MEDS: THIAMINE HCL 100 MG TABLET (FP) PO SCH (22:36)
[2021-10-05] MEDS: MELATONIN 5 MG TABLETS PO SCH (22:36)
[2021-10-05] MEDS: INSULIN (LEVEMIR) 100 UNITS/ML UNITS SQ SCH (22:37)
[2021-10-06] MEDS ORDERED: chlordiazePOXIDE HCL 10 MG CAPSULE PO PRN
[2021-10-06] MEDS: metFORMIN HCL 500 MG TABLET (FP) PO SCH (06:12)
[2021-10-06] MEDS: chlordiazePOXIDE HCL 10 MG CAPSULE PO SCH ×2 (06:12→10:09)
[2021-10-06] MEDS: hydrOXYzine PAMOATE 25 MG CAPSULE (FP) PO SCH ×2 (06:12→10:09)
[2021-10-06] MEDS: INSULIN SLIDING SCALE (NOVOLOG) 1 VIAL SQ SCH ×2 (08:20→10:11)
[2021-10-06] MEDS ORDERED: methaDONE HCL 10 MG TABLET (FOR DETOX USE ONLY) ONE (09:26)
[2021-10-06 09:55] VITALS: BP 174/102; PULSE 80; TEMP 97.5
[2021-10-06] MEDS: ONDANSETRON *ODT* 4 MG TABLET SL PRN (10:11)
[2021-10-06] MEDS: NICOTINE 21 MG/24 HOURS TOPICAL PATCH TD SCH (10:11)
[2021-10-07] MEDS ORDERED: chlordiazePOXIDE HCL 10 MG CAPSULE PO SCH (05:00)
[2021-10-07] MEDS ORDERED: methaDONE HCL 10 MG TABLET (FOR DETOX USE ONLY) PO ONE (10:00)
[2021-10-08] MEDS ORDERED: chlordiazePOXIDE HCL 10 MG CAPSULE PO ONE (05:00)
== END 2021-10-06 11:13 | disposition other institution (70) | DRG 773 ==
LOC: YASAS 12:15 → Y3N 14:46
PROVIDERS: ADMIT Allergy & Immunology; ATTEND Allergy & Immunology
PROC: HZ2ZZZZ Detoxification Services for Substance Abuse Treatment (ICD-10-PCS; principal; 2021-10-03)
DX: F11.23 Opioid dependence with withdrawal (principal); F10.230 Alcohol dependence with withdrawal, uncomplicated; F12.20 Cannabis dependence, uncomplicated; F17.210 Nicotine dependence, cigarettes, uncomplicated; F19.24 Other psychoactive substance dependence with psychoactive substance-induced mood disorder; F43.10 Post-traumatic stress disorder, unspecified; G47.00 Insomnia, unspecified; K21.9 Gastro-esophageal reflux disease without esophagitis; E11.65 Type 2 diabetes mellitus with hyperglycemia; Z79.4 Long term (current) use of insulin; Z88.0 Allergy status to penicillin; Z91.013 Allergy to seafood; Z91.14 Patient's other noncompliance with medication regimen
CPT/HCPCS: 36415; 80053; 82962; 83036; 85027; 86780; C9803; J0735; Q0162; U0003; U0005

== ENCOUNTER 2023-06-11 13:58 | Inpatient (IN) | payer OTHER ==
[2023-06-11 15:56] VITALS: BMI 27.0
[2023-06-11] MEDS ORDERED: MAG HYDROX/AL HYDROX/SIMETH 30 ML UNIT-DOSE CUP PO PRN (17:39)
[2023-06-11] MEDS ORDERED: ACETAMINOPHEN 325 MG TABLET (FP) PO PRN (17:39)
[2023-06-11] MEDS ORDERED: NALOXONE HCL 0.4 MG/ML VIAL IM PRN (17:39)
[2023-06-11] MEDS ORDERED: ONDANSETRON *ODT* 4 MG TABLET SL PRN (17:39)
[2023-06-11] MEDS ORDERED: hydrOXYzine PAMOATE 25 MG CAPSULE (FP) PO PRN (17:39)
[2023-06-11] MEDS ORDERED: POLYETHYLENE GLYCOL (HEALTHYLAX) 3350 17 GM PACKET PO PRN (17:39)
[2023-06-11] MEDS ORDERED: IBUPROFEN 400 MG TABLET (FP) PO PRN (17:39)
[2023-06-11] MEDS ORDERED: BENZOCAINE/MENTHOL (CHLORASEPTIC ) LOZENGE MM PRN (17:39)
[2023-06-11] MEDS ORDERED: IBUPROFEN 600 MG TABLET (FP) PO PRN (17:39)
[2023-06-11] MEDS ORDERED: DICYCLOMINE HCL 10 MG CAPSULE PO PRN (17:39)
[2023-06-11] MEDS ORDERED: BISMUTH SUBSALICYLATE 524 MG/30 ML PO PRN (17:39)
[2023-06-11] MEDS ORDERED: BENZONATATE 200 MG CAPSULE PO PRN (17:39)
[2023-06-11] MEDS ORDERED: MAGNESIUM HYDROX 2400MG/30ML ORAL SUSPENSION 30 ML CUP PO PRN (17:39)
[2023-06-11] MEDS ORDERED: NALOXONE HCL (KLOXXADO) 8 MG SPRAY NS PRN (17:39)
[2023-06-11] MEDS ORDERED: LOPERAMIDE HCL 2 MG CAPSULE PO PRN (17:39)
[2023-06-11] MEDS ORDERED: guaiFENesin 600 MG TABLET.ER (FP) PO PRN (17:39)
[2023-06-11] MEDS ORDERED: P-EPHED 60MG/TRIPROLIDI 2.5MG TABLET PO PRN (17:44)
[2023-06-11] MEDS ORDERED: methaDONE HCL 10 MG TABLET (FOR DETOX USE ONLY) ONE (18:09)
[2023-06-11] MEDS ORDERED: methaDONE HCL 10 MG TABLET (FOR DETOX USE ONLY) PO ONE (18:15)
[2023-06-11] MEDS: MELATONIN 5 MG TABLETS PO SCH (21:52)
[2023-06-11] MEDS: cloNIDine HCL 0.1 MG TABLET PO PRN (21:52)
[2023-06-11] MEDS: THIAMINE HCL 100 MG TABLET (FP) PO SCH (21:52)
[2023-06-12] MEDS: metFORMIN HCL 500 MG TABLET (FP) PO SCH ×2 (06:59→16:54)
[2023-06-12] MEDS: PRENATAL VITAMINS W/ FOLIC ACID TABLET (FP) PO SCH (09:23)
[2023-06-12] MEDS: amLODIPine BESYLATE 10 MG TABLET (FP) PO SCH (09:24)
[2023-06-12] MEDS ORDERED: INSULIN SLIDING SCALE (NOVOLOG) 1 VIAL SQ SCH (11:00)
[2023-06-12] MEDS: INSULIN SLIDING SCALE (NOVOLOG) 1 VIAL SQ SCH ×3 (11:48→22:22)
[2023-06-12 11:50] LABS: HEMATOCRIT 34.3 % (35.4-49); HEMOGLOBIN 11.7 GM/dL (11.7-16.9); MCH 31.8 pg (25.7-33.7); MEAN CELL VOLUME 93.5 fl (80-96); MEAN PLT VOLUME 9.2 fl (7.5-11.1); PLATELET COUNT 265 10^3/uL (134-434); RBC 3.67 M/mm3 (4.00-5.60); RDW 13.5 % (11.9-15.9); WHITE BLOOD COUNT 8.4 K/mm3 (4.0-10.0)
[2023-06-12 11:52] LABS: CHLORIDE 107 mmol/L (98-107); POTASSIUM 3.9 mmol/L (3.5-5.1); SODIUM 142 mmol/L (136-145)
[2023-06-12 12:13] LABS: CALCIUM 8.5 mg/dL (8.5-10.1)
[2023-06-12 12:14] LABS: ALBUMIN 2.9 g/dl (3.4-5.0); ANION GAP 8 mmol/L (4-13); BLOOD UREA NITROGEN 15.7 mg/dL (7-18); CO2 27 mmol/L (21-32); GLUCOSE,RANDOM 117 mg/dL (74-106)
[2023-06-12 12:16] LABS: SGPT/ALT 29 U/L (13-61)
[2023-06-12 12:17] LABS: SGOT/AST 20 U/L (15-37)
[2023-06-12 12:18] LABS: BILIRUBIN,TOTAL 0.8 mg/dL (0.2-1)
[2023-06-12 12:19] LABS: ALK PHOS 80 U/L (45-117)
[2023-06-12] MEDS: THIAMINE HCL 100 MG TABLET (FP) PO SCH (22:21)
[2023-06-12] MEDS: QUEtiapine FUMARATE 50 MG TABLET PO SCH (22:21)
[2023-06-12] MEDS: METHOCARBAMOL 500 MG TABLET PO PRN (22:21)
[2023-06-12] MEDS: MELATONIN 5 MG TABLETS PO SCH (22:21)
[2023-06-13] MEDS: INSULIN SLIDING SCALE (NOVOLOG) 1 VIAL SQ SCH ×3 (06:06→21:31)
[2023-06-13] MEDS: metFORMIN HCL 500 MG TABLET (FP) PO SCH ×2 (06:06→18:28)
[2023-06-13] MEDS: METHOCARBAMOL 500 MG TABLET PO PRN (08:51)
[2023-06-13] MEDS: cloNIDine HCL 0.1 MG TABLET PO PRN (08:51)
[2023-06-13] MEDS: PRENATAL VITAMINS W/ FOLIC ACID TABLET (FP) PO SCH (09:24)
[2023-06-13] MEDS: amLODIPine BESYLATE 10 MG TABLET (FP) PO SCH (09:25)
[2023-06-13] MEDS ORDERED: methaDONE HCL 10 MG TABLET (FOR DETOX USE ONLY) PO ONE (10:00)
[2023-06-13] MEDS ORDERED: PRAZOSIN HCL 1 MG CAPSULE PO SCH ×2 (12:00→22:00)
[2023-06-13] MEDS ORDERED: LIDOCAINE 5% TOPICAL PATCH TP SCH (12:00)
[2023-06-13 21:28] VITALS: BP 156/85; PULSE 63; RESP 16; TEMP 97.8
[2023-06-13] MEDS ORDERED: LIDOCAINE PATCH REMOVAL MC SCH (22:00)
[2023-06-13] MEDS: MELATONIN 5 MG TABLETS PO SCH (22:39)
[2023-06-13] MEDS: QUEtiapine FUMARATE 50 MG TABLET PO SCH (22:39)
[2023-06-13] MEDS: THIAMINE HCL 100 MG TABLET (FP) PO SCH (22:39)
[2023-06-14] MEDS: INSULIN SLIDING SCALE (NOVOLOG) 1 VIAL SQ SCH ×2 (00:24→07:10)
[2023-06-14] MEDS: metFORMIN HCL 500 MG TABLET (FP) PO SCH (07:10)
[2023-06-14] MEDS ORDERED: LIRAGLUTIDE 0.6 MG/0.1 ML PEN.INJCTR SQ SCH (10:00)
[2023-06-15] MEDS ORDERED: methaDONE HCL 10 MG TABLET (FOR DETOX USE ONLY) PO ONE (10:00)
== END 2023-06-14 05:32 | disposition left against medical advice (07) | DRG 770 ==
LOC: YASAS 13:58 → Y6N 17:58
PROVIDERS: ADMIT Allergy & Immunology; ATTEND Surgery
PROC: HZ2ZZZZ Detoxification Services for Substance Abuse Treatment (ICD-10-PCS; principal; 2023-06-11)
DX: F11.23 Opioid dependence with withdrawal (principal); F10.230 Alcohol dependence with withdrawal, uncomplicated; F12.20 Cannabis dependence, uncomplicated; F19.280 Other psychoactive substance dependence with psychoactive substance-induced anxiety disorder; F19.282 Other psychoactive substance dependence with psychoactive substance-induced sleep disorder; F19.24 Other psychoactive substance dependence with psychoactive substance-induced mood disorder; F43.10 Post-traumatic stress disorder, unspecified; F32.A Depression, unspecified; I10 Essential (primary) hypertension; E11.9 Type 2 diabetes mellitus without complications; Z79.84 Long term (current) use of oral hypoglycemic drugs; Z79.85 Long-term (current) use of injectable non-insulin antidiabetic drugs; G40.909 Epilepsy, unspecified, not intractable, without status epilepticus; M54.50 Low back pain, unspecified; G89.29 Other chronic pain; R76.11 Nonspecific reaction to tuberculin skin test without active tuberculosis; Z91.148 Patient's other noncompliance with medication regimen for other reason; Z88.0 Allergy status to penicillin
CPT/HCPCS: 36415; 71046-TC-FY; 80053; 80307; 82962; 85027; 86780; 87635; 87811; 93005; 93010

== ENCOUNTER 2023-08-24 13:28 | Inpatient (IN) | payer OTHER ==
[2023-08-24 14:47] VITALS: BMI 25.0
[2023-08-24] MEDS ORDERED: cloNIDine HCL 0.1 MG TABLET PO ONE (16:56)
[2023-08-24] MEDS ORDERED: NICOTINE POLACRILEX 2 MG GUM BUC PRN (17:01)
[2023-08-24] MEDS ORDERED: NALOXONE HCL (KLOXXADO) 8 MG SPRAY NS PRN (17:01)
[2023-08-24] MEDS ORDERED: BENZOCAINE/MENTHOL (CHLORASEPTIC ) LOZENGE MM PRN (17:01)
[2023-08-24] MEDS ORDERED: BENZONATATE 200 MG CAPSULE PO PRN (17:01)
[2023-08-24] MEDS ORDERED: ACETAMINOPHEN 325 MG TABLET (FP) PO PRN (17:01)
[2023-08-24] MEDS ORDERED: POLYETHYLENE GLYCOL (HEALTHYLAX) 3350 17 GM PACKET PO PRN (17:01)
[2023-08-24] MEDS ORDERED: MAGNESIUM HYDROX 2400MG/30ML ORAL SUSPENSION 30 ML CUP PO PRN (17:01)
[2023-08-24] MEDS ORDERED: NALOXONE HCL 0.4 MG/ML VIAL IM PRN (17:01)
[2023-08-24] MEDS ORDERED: guaiFENesin 600 MG TABLET.ER (FP) PO PRN (17:01)
[2023-08-24] MEDS ORDERED: LOPERAMIDE HCL 2 MG CAPSULE PO PRN (17:01)
[2023-08-24] MEDS ORDERED: IBUPROFEN 400 MG TABLET (FP) PO PRN (17:01)
[2023-08-24] MEDS ORDERED: P-EPHED 60MG/TRIPROLIDI 2.5MG TABLET PO PRN (17:01)
[2023-08-24] MEDS ORDERED: BISMUTH SUBSALICYLATE 524 MG/30 ML PO PRN (17:01)
[2023-08-24] MEDS ORDERED: IBUPROFEN 600 MG TABLET (FP) PO PRN (17:01)
[2023-08-24] MEDS ORDERED: methaDONE HCL 10 MG TABLET (FOR DETOX USE ONLY) PO ONE (17:01)
[2023-08-24] MEDS ORDERED: chlordiazePOXIDE HCL 25 MG CAPSULE PO PRN (17:01)
[2023-08-24] MEDS ORDERED: DICYCLOMINE HCL 10 MG CAPSULE PO PRN (17:01)
[2023-08-24] MEDS ORDERED: cloNIDine HCL 0.1 MG TABLET ONE (17:02)
[2023-08-24] MEDS ORDERED: chlordiazePOXIDE HCL 25 MG CAPSULE ONE (17:39)
[2023-08-24] MEDS ORDERED: methaDONE HCL 10 MG TABLET (FOR DETOX USE ONLY) ONE (17:40)
[2023-08-24] MEDS: chlordiazePOXIDE HCL 25 MG CAPSULE PO SCH ×2 (17:47→22:35)
[2023-08-24] MEDS: MAG HYDROX/AL HYDROX/SIMETH 30 ML UNIT-DOSE CUP PO PRN (18:28)
[2023-08-24] MEDS: THIAMINE HCL 100 MG TABLET (FP) PO SCH (22:35)
[2023-08-24] MEDS: MELATONIN 5 MG TABLETS PO SCH (22:37)
[2023-08-24] MEDS ORDERED: PROMETHAZINE HCL 25 MG TABLET PO ONE (23:39)
[2023-08-25] MEDS: METHOCARBAMOL 500 MG TABLET PO PRN ×3 (01:44→23:28)
[2023-08-25] MEDS: chlordiazePOXIDE HCL 25 MG CAPSULE PO SCH ×4 (05:50→23:32)
[2023-08-25] MEDS ORDERED: PROMETHAZINE HCL 25 MG TABLET PO ONE (06:15)
[2023-08-25] MEDS: metFORMIN HCL 500 MG TABLET (FP) PO SCH ×2 (06:18→17:35)
[2023-08-25 09:38] LABS: CHLORIDE 102 mmol/L (98-107); POTASSIUM 4.3 mmol/L (3.5-5.1); SODIUM 143 mmol/L (136-145)
[2023-08-25 09:40] LABS: HEMOGLOBIN 12.7 GM/dL (11.7-16.9); MCH 30.3 pg (25.7-33.7); MCHC 32.6 g/dl (32.0-35.9); PLATELET COUNT 211 10^3/uL (134-434); RDW 12.2 % (11.9-15.9); WHITE BLOOD COUNT 7.8 K/mm3 (4.0-10.0)
[2023-08-25 09:50] LABS: ALBUMIN 2.3 g/dl (3.4-5.0); ANION GAP 6 mmol/L (4-13); BLOOD UREA NITROGEN 18.2 mg/dL (7-18); CALCIUM 8.6 mg/dL (8.5-10.1); CO2 35 mmol/L (21-32); GLUCOSE,RANDOM 153 mg/dL (74-106)
[2023-08-25 09:53] LABS: CREATININE 1.3 mg/dL (0.55-1.3); SGOT/AST 16 U/L (15-37); SGPT/ALT 16 U/L (13-61)
[2023-08-25 09:55] LABS: ALK PHOS 70 U/L (45-117); BILIRUBIN,TOTAL 0.4 mg/dL (0.2-1); TOT PROT 5.2 g/dl (6.4-8.2)
[2023-08-25] MEDS: LOSARTAN POTASSIUM 50 MG TABLET PO SCH (11:30)
[2023-08-25] MEDS: PRENATAL VITAMINS W/ FOLIC ACID TABLET (FP) PO SCH (11:31)
[2023-08-25] MEDS: cloNIDine HCL 0.1 MG TABLET PO PRN ×3 (14:14→23:32)
[2023-08-25] MEDS ORDERED: LOSARTAN POTASSIUM 50 MG TABLET PO ONE (18:06)
[2023-08-25] MEDS: QUEtiapine FUMARATE 50 MG TABLET PO SCH (23:27)
[2023-08-25] MEDS: MELATONIN 5 MG TABLETS PO SCH (23:31)
[2023-08-25] MEDS: THIAMINE HCL 100 MG TABLET (FP) PO SCH (23:32)
[2023-08-26] MEDS: metFORMIN HCL 500 MG TABLET (FP) PO SCH ×2 (06:26→17:58)
[2023-08-26] MEDS: cloNIDine HCL 0.1 MG TABLET PO PRN ×2 (06:27→15:02)
[2023-08-26] MEDS: chlordiazePOXIDE HCL 25 MG CAPSULE PO SCH ×4 (06:27→22:49)
[2023-08-26] MEDS ORDERED: methaDONE HCL 10 MG TABLET (FOR DETOX USE ONLY) PO ONE (10:00)
[2023-08-26] MEDS: PRENATAL VITAMINS W/ FOLIC ACID TABLET (FP) PO SCH (10:34)
[2023-08-26] MEDS: LOSARTAN POTASSIUM 50 MG TABLET PO SCH (12:50)
[2023-08-26] MEDS: MAG HYDROX/AL HYDROX/SIMETH 30 ML UNIT-DOSE CUP PO PRN (18:13)
[2023-08-26] MEDS: THIAMINE HCL 100 MG TABLET (FP) PO SCH (22:49)
[2023-08-26] MEDS: QUEtiapine FUMARATE 50 MG TABLET PO SCH (22:49)
[2023-08-26] MEDS: MELATONIN 5 MG TABLETS PO SCH (22:54)
[2023-08-27] MEDS ORDERED: chlordiazePOXIDE HCL 10 MG CAPSULE PO PRN
[2023-08-27] MEDS: chlordiazePOXIDE HCL 10 MG CAPSULE PO SCH ×4 (05:52→22:14)
[2023-08-27] MEDS: metFORMIN HCL 500 MG TABLET (FP) PO SCH ×2 (06:12→17:30)
[2023-08-27] MEDS: METHOCARBAMOL 500 MG TABLET PO PRN (09:56)
[2023-08-27] MEDS: LOSARTAN POTASSIUM 50 MG TABLET PO SCH (09:58)
[2023-08-27] MEDS: PRENATAL VITAMINS W/ FOLIC ACID TABLET (FP) PO SCH (09:58)
[2023-08-27] MEDS ORDERED: amLODIPine BESYLATE 5 MG TABLET (FP) PO ONE (20:59)
[2023-08-27] MEDS: QUEtiapine FUMARATE 50 MG TABLET PO SCH (22:13)
[2023-08-27] MEDS: THIAMINE HCL 100 MG TABLET (FP) PO SCH (22:14)
[2023-08-27] MEDS: MELATONIN 5 MG TABLETS PO SCH (22:14)
[2023-08-27] MEDS ORDERED: cloNIDine HCL 0.1 MG TABLET PO ONE (23:32)
[2023-08-27] MEDS: MAG HYDROX/AL HYDROX/SIMETH 30 ML UNIT-DOSE CUP PO PRN (23:38)
[2023-08-28] MEDS: chlordiazePOXIDE HCL 10 MG CAPSULE PO SCH ×2 (05:50→17:22)
[2023-08-28] MEDS ORDERED: TRIMETHOBENZAMIDE HCL 200MG/2ML INJ IM ONE (05:57)
[2023-08-28] MEDS: metFORMIN HCL 500 MG TABLET (FP) PO SCH ×2 (06:50→17:21)
[2023-08-28] MEDS: PRENATAL VITAMINS W/ FOLIC ACID TABLET (FP) PO SCH (09:59)
[2023-08-28] MEDS: LOSARTAN POTASSIUM 50 MG TABLET PO SCH (09:59)
[2023-08-28] MEDS: METHOCARBAMOL 500 MG TABLET PO PRN ×2 (09:59→22:20)
[2023-08-28] MEDS ORDERED: methaDONE HCL 10 MG TABLET (FOR DETOX USE ONLY) PO ONE (10:00)
[2023-08-28] MEDS: INSULIN ASPART SLIDING SCALE (NOVOLOG) 1 VIAL SQ SCH ×3 (11:34→22:19)
[2023-08-28] MEDS ORDERED: amLODIPine BESYLATE 5 MG TABLET (FP) PO ONE (13:12)
[2023-08-28] MEDS: MELATONIN 5 MG TABLETS PO SCH (22:19)
[2023-08-28] MEDS: THIAMINE HCL 100 MG TABLET (FP) PO SCH (22:20)
[2023-08-28] MEDS: QUEtiapine FUMARATE 50 MG TABLET PO SCH (22:20)
[2023-08-29] MEDS ORDERED: chlordiazePOXIDE HCL 10 MG CAPSULE PO ONE (05:00)
[2023-08-29 05:55] VITALS: BP 131/81; PULSE 61; RESP 17; TEMP 97.7
[2023-08-29] MEDS: INSULIN ASPART SLIDING SCALE (NOVOLOG) 1 VIAL SQ SCH (06:03)
[2023-08-29] MEDS: metFORMIN HCL 500 MG TABLET (FP) PO SCH (07:21)
== END 2023-08-29 08:36 | disposition home or self-care (01) | DRG 773 ==
LOC: YASAS 13:28 → Y6N 17:14 → Y3N 08-25 17:56
PROVIDERS: ADMIT Allergy & Immunology; ATTEND Surgery
PROC: HZ2ZZZZ Detoxification Services for Substance Abuse Treatment (ICD-10-PCS; principal; 2023-08-24)
DX: F11.23 Opioid dependence with withdrawal (principal); F10.230 Alcohol dependence with withdrawal, uncomplicated; F17.213 Nicotine dependence, cigarettes, with withdrawal; F19.94 Other psychoactive substance use, unspecified with psychoactive substance-induced mood disorder; F19.982 Other psychoactive substance use, unspecified with psychoactive substance-induced sleep disorder; I10 Essential (primary) hypertension; M54.50 Low back pain, unspecified; G89.29 Other chronic pain; K21.9 Gastro-esophageal reflux disease without esophagitis; E11.9 Type 2 diabetes mellitus without complications; M25.551 Pain in right hip; Z88.0 Allergy status to penicillin; Z91.013 Allergy to seafood; Z86.11 Personal history of tuberculosis; W18.39XA Other fall on same level, initial encounter; Y93.89 Activity, other specified; Y92.238 Other place in hospital as the place of occurrence of the external cause; Z86.69 Personal history of other diseases of the nervous system and sense organs; Z56.0 Unemployment, unspecified; Z59.00 Homelessness unspecified
CPT/HCPCS: 36415; 80053; 80307; 81003; 82962; 85027; 86780; 87635; 87811; 93005; 93010

== ENCOUNTER 2023-08-27 10:58 | Emergency (ER) | payer OTHER ==
[2023-08-27 11:09] VITALS: BP 182/103; PULSE 74; RESP 20; TEMP 97.8; BMI 23.7
[2023-08-27] MEDS ORDERED: KETOROLAC TROMETHAMINE 30 MG/1 ML VIAL IM ONE (13:24)
[2023-08-27] MEDS ORDERED: KETOROLAC TROMETHAMINE 30 MG/1 ML VIAL ONE (13:39)
== END 2023-08-27 15:07 ==
LOC: JERFT 10:58
PROC: 3E0233Z Introduction of Anti-inflammatory into Muscle, Percutaneous Approach (ICD-10-PCS; principal; 2023-08-27)
DX: M54.50 Low back pain, unspecified (principal); M25.551 Pain in right hip; W01.0XXA Fall on same level from slipping, tripping and stumbling without subsequent striking against object, initial encounter; Y92.009 Unspecified place in unspecified non-institutional (private) residence as the place of occurrence of the external cause
CPT/HCPCS: 72170-TC-FY; 73502-TC-RT-FY; 96372; 99284-25

== ENCOUNTER 2023-10-23 11:44 | Inpatient (IN) | payer OTHER ==
[2023-10-23 12:39] VITALS: BMI 25.2
[2023-10-23] MEDS ORDERED: LOPERAMIDE HCL 2 MG CAPSULE PO PRN (15:10)
[2023-10-23] MEDS ORDERED: MAG HYDROX/AL HYDROX/SIMETH 30 ML UNIT-DOSE CUP PO PRN (15:10)
[2023-10-23] MEDS ORDERED: BISMUTH SUBSALICYLATE 262 MG/15 ML BTL PO PRN (15:10)
[2023-10-23] MEDS ORDERED: ACETAMINOPHEN 325 MG TABLET (FP) PO PRN (15:10)
[2023-10-23] MEDS ORDERED: guaiFENesin 600 MG TABLET.ER (FP) PO PRN (15:10)
[2023-10-23] MEDS ORDERED: BUPRENORPHINE HCL 150 MCG, BUPRENORPHINE HCL 75 MCG BC PRN (15:10)
[2023-10-23] MEDS ORDERED: POLYETHYLENE GLYCOL (HEALTHYLAX) 3350 17 GM PACKET PO PRN (15:10)
[2023-10-23] MEDS ORDERED: DICYCLOMINE HCL 10 MG CAPSULE PO PRN (15:10)
[2023-10-23] MEDS ORDERED: NALOXONE HCL (KLOXXADO) 8 MG SPRAY NS PRN (15:10)
[2023-10-23] MEDS ORDERED: BENZOCAINE/MENTHOL (CHLORASEPTIC ) LOZENGE MM PRN (15:10)
[2023-10-23] MEDS ORDERED: IBUPROFEN 400 MG TABLET (FP) PO PRN (15:10)
[2023-10-23] MEDS ORDERED: NALOXONE HCL 0.4 MG/ML VIAL IM PRN (15:10)
[2023-10-23] MEDS ORDERED: METHOCARBAMOL 500 MG TABLET PO PRN (15:10)
[2023-10-23] MEDS ORDERED: ONDANSETRON *ODT* 4 MG TABLET SL PRN (15:10)
[2023-10-23] MEDS ORDERED: IBUPROFEN 600 MG TABLET (FP) PO PRN (15:10)
[2023-10-23] MEDS ORDERED: MAGNESIUM HYDROX 2400MG/30ML ORAL SUSPENSION 30 ML CUP PO PRN (15:10)
[2023-10-23] MEDS ORDERED: BENZONATATE 200 MG CAPSULE PO PRN (15:10)
[2023-10-23] MEDS ORDERED: amLODIPine BESYLATE 5 MG TABLET (FP) PO SCH (15:15)
[2023-10-23] MEDS ORDERED: BUPRENORPHINE HCL 150 MCG FILM BC ONE (15:37)
[2023-10-23] MEDS ORDERED: amLODIPine BESYLATE 5 MG TABLET (FP) ONE (15:37)
[2023-10-23] MEDS ORDERED: BUPRENORPHINE HCL 75 MCG FILM BC ONE (15:37)
[2023-10-23] MEDS ORDERED: diazePAM 5 MG TABLET ONE (15:42)
[2023-10-23] MEDS: BUPRENORPHINE HCL 150 MCG, BUPRENORPHINE HCL 75 MCG BC ONE (15:45)
[2023-10-23] MEDS: cloNIDine HCL 0.1 MG TABLET PO ONE (15:46)
[2023-10-23] MEDS: amLODIPine BESYLATE 5 MG TABLET (FP) PO SCH (15:47)
[2023-10-23] MEDS: diazePAM 5 MG TABLET PO PRN (15:48)
[2023-10-23] MEDS: LOSARTAN POTASSIUM 50 MG TABLET PO SCH ×2 (18:10→19:19)
[2023-10-23] MEDS: metFORMIN HCL 500 MG TABLET (FP) PO SCH ×2 (18:10→19:19)
[2023-10-23] MEDS: QUEtiapine FUMARATE 50 MG TABLET PO SCH (22:35)
[2023-10-23] MEDS: THIAMINE HCL 100 MG TABLET (FP) PO SCH (22:35)
[2023-10-23] MEDS: MELATONIN 5 MG TABLETS PO SCH (22:42)
[2023-10-23] MEDS: LIRAGLUTIDE 0.6 MG/0.1 ML PEN.INJCTR SQ SCH (22:44)
[2023-10-24] MEDS ORDERED: BUPRENORPHINE HCL 150 MCG, BUPRENORPHINE HCL 75 MCG BC PRN
[2023-10-24] MEDS: BUPRENORPHINE HCL 150 MCG, BUPRENORPHINE HCL 75 MCG BC SCH (07:00)
[2023-10-24] MEDS: PRENATAL VITAMINS W/ FOLIC ACID TABLET (FP) PO SCH (10:09)
[2023-10-24 13:19] LABS: CHLORIDE 105 mmol/L (98-107); POTASSIUM 4.9 mmol/L (3.5-5.1); SODIUM 138 mmol/L (136-145)
[2023-10-24 13:29] LABS: CREATININE 1.1 mg/dL (0.55-1.3); SGPT/ALT 25 U/L (13-61)
[2023-10-24 13:30] LABS: BILIRUBIN,TOTAL 0.2 mg/dL (0.2-1); CALCIUM 8.8 mg/dL (8.5-10.1)
[2023-10-24 13:31] LABS: ALBUMIN 2.4 g/dl (3.4-5.0); ANION GAP 0 mmol/L (4-13); BLOOD UREA NITROGEN 20.2 mg/dL (7-18); CO2 34 mmol/L (21-32); GLUCOSE,RANDOM 324 mg/dL (74-106); TOT PROT 5.4 g/dl (6.4-8.2)
[2023-10-24 13:32] LABS: ALK PHOS 92 U/L (45-117)
[2023-10-24 13:34] LABS: SGOT/AST 19 U/L (15-37)
[2023-10-24] MEDS: hydrOXYzine PAMOATE 25 MG CAPSULE (FP) PO PRN (22:23)
[2023-10-24] MEDS: cloNIDine HCL 0.1 MG TABLET PO PRN (22:23)
[2023-10-25] MEDS: BUPRENORPHINE HCL 450 MCG FILM BC SCH (06:50)
[2023-10-26] MEDS: BUPRENORPHINE/NALOXONE 4 MG/1 MG FILM PACKET SL SCH (06:42)
[2023-10-26] MEDS: INSULIN ASPART SLIDING SCALE (NOVOLOG) 1 VIAL SQ SCH (11:12)
[2023-10-26 12:41] LABS: HEMATOCRIT 38.3 % (35.4-49); HEMOGLOBIN 12.7 GM/dL (11.7-16.9); MCH 31.1 pg (25.7-33.7); MCHC 33.2 g/dl (32.0-35.9); MEAN CELL VOLUME 93.7 fl (80-96); MEAN PLT VOLUME 9.1 fl (7.5-11.1); PLATELET COUNT 258 10^3/uL (134-434); RBC 4.09 M/mm3 (4.00-5.60); RDW 12.6 % (11.9-15.9); WHITE BLOOD COUNT 11.7 K/mm3 (4.0-10.0)
[2023-10-26] MEDS ORDERED: INSULIN (NOVOLOG) ASPART 100 UNITS/ML 10ML VIAL ONE ×2 (16:57→22:40)
[2023-10-27] MEDS: BUPRENORPHINE/NALOXONE 8 MG/2 MG FILM PACKET SL ONE (06:13)
[2023-10-27 08:48] VITALS: BP 160/96; PULSE 72; RESP 18; TEMP 97.3
== END 2023-10-27 10:01 | disposition home or self-care (01) | DRG 773 ==
LOC: YASAS 11:44 → Y6N 15:25
PROVIDERS: ADMIT Allergy & Immunology; ATTEND Surgery
PROC: HZ2ZZZZ Detoxification Services for Substance Abuse Treatment (ICD-10-PCS; principal; 2023-10-23)
DX: F11.23 Opioid dependence with withdrawal (principal); F10.230 Alcohol dependence with withdrawal, uncomplicated; F13.20 Sedative, hypnotic or anxiolytic dependence, uncomplicated; F17.210 Nicotine dependence, cigarettes, uncomplicated; F31.9 Bipolar disorder, unspecified; F41.9 Anxiety disorder, unspecified; E78.5 Hyperlipidemia, unspecified; I10 Essential (primary) hypertension; E11.65 Type 2 diabetes mellitus with hyperglycemia; Z79.4 Long term (current) use of insulin; Z79.85 Long-term (current) use of injectable non-insulin antidiabetic drugs; M54.50 Low back pain, unspecified; G89.29 Other chronic pain; Z91.81 History of falling; Z86.69 Personal history of other diseases of the nervous system and sense organs; Z88.0 Allergy status to penicillin
CPT/HCPCS: 36415; 80053; 80305; 80307; 82140; 82947; 82962; 83036; 85027; 86780; 87635; 87811

== ENCOUNTER 2024-09-27 14:21 | Emergency (ER) | payer OTHER ==
[2024-09-27 15:17] VITALS: BP 122/71; PULSE 103; RESP 20; TEMP 98.3; BMI 24.4
[2024-09-27 15:28] LABS: HEMATOCRIT 40.4 % (35.4-49); HEMOGLOBIN 13.2 GM/dL (11.7-16.9); MCH 30.7 pg (25.7-33.7); MCHC 32.6 g/dl (32.0-35.9); MEAN CELL VOLUME 94.3 fl (80-96); MEAN PLT VOLUME 8.1 fl (7.5-11.1); PLATELET COUNT 420 10^3/uL (134-434); RBC 4.28 M/mm3 (4.00-5.60); RDW 12.2 % (11.9-15.9); WHITE BLOOD COUNT 9.6 K/mm3 (4.0-10.0)
[2024-09-27 15:43] LABS: CHLORIDE 101 mmol/L (98-107); POTASSIUM 4.4 mmol/L (3.5-5.1); SODIUM 137 mmol/L (136-145)
[2024-09-27 15:44] LABS: ANION GAP 6 mmol/L (4-13); BLOOD UREA NITROGEN 34.5 mg/dL (7-18); CALCIUM 8.5 mg/dL (8.5-10.1); CO2 30 mmol/L (21-32)
[2024-09-27 15:45] LABS: ALBUMIN 1.4 g/dl (3.4-5.0)
[2024-09-27 15:47] LABS: SGOT/AST 82 U/L (15-37); SGPT/ALT 91 U/L (13-61); VENOUS BASE EXCESS 0.7 mmol/L (-2-2); VENOUS O2 SATURATION 50.3 % (70-80); VENOUS PCO2 58.6 mmHg (38-52); VENOUS PH 7.302 (7.310-7.410)
[2024-09-27 15:48] LABS: CREATININE 1.5 mg/dL (0.55-1.3)
[2024-09-27 15:50] LABS: ALK PHOS 199 U/L (45-117); BILIRUBIN,TOTAL 0.3 mg/dL (0.2-1); TOT PROT 5.8 g/dl (6.4-8.2)
[2024-09-27 15:52] LABS: ANISOCYTOSIS 0; MACROCYTOSIS 0
[2024-09-27 15:53] LABS: GLUCOSE,RANDOM 431 mg/dL (74-106)
[2024-09-27] MEDS: SODIUM CHLORIDE 0.9% 500 ML INFUS.BAG IV ONE (16:39)
[2024-09-27] MEDS ORDERED: INSULIN REGULAR HUMAN 100 UNITS/ML *VIAL ONE ×2 (18:08→18:45)
[2024-09-27] MEDS: INSULIN REGULAR HUMAN 100 UNITS/ML *VIAL IVPUSH ONE (18:49)
[2024-09-27] MEDS: INSULIN REGULAR HUMAN 100 UNITS/ML *VIAL SQ ONE (19:15)
== END 2024-09-27 19:27 ==
LOC: JER 14:21
DX: E11.65 Type 2 diabetes mellitus with hyperglycemia (principal); R42 Dizziness and giddiness; M79.662 Pain in left lower leg; M79.89 Other specified soft tissue disorders
CPT/HCPCS: 36415; 73610-TC-LT-FY; 73630-TC-LT; 80053; 80307; 82010; 82803; 82962; 85025; 93005; 93010; 93971-TC; 99285-25